=== PATIENT | female | born 1960 | race African-American/Black ===

== ENCOUNTER 2017-09-12 15:53 | Emergency (ER) | payer MEDICAID ==
[~2017-09-12] VITALS: Ht 152.4 cm; Wt 56.2 kg
[2017-09-12 15:53] VITALS: BP 115/59
[2017-09-12] MEDS ORDERED: IBUPROFEN 400 MG TABLET PO ONE (16:30)
[2017-09-12] MEDS ORDERED: IBUPROFEN 400 MG TABLET ONE (17:18)
== END 2017-09-12 17:33 | disposition home or self-care (01) ==
LOC: ER 15:58
DX: M65.4 Radial styloid tenosynovitis [de Quervain] (principal); Z60.2 Problems related to living alone
CPT/HCPCS: A4606; Z7610

== ENCOUNTER 2023-05-24 09:09 | Emergency (ER) | payer MEDICAID, OTHER ==
[~2023-05-24] VITALS: Ht 152.4 cm; Wt 55.3 kg
[2023-05-24 09:21] VITALS: BP 124/77; TEMP 98.7; O2SAT 100
[2023-05-24] MEDS ORDERED: KETOROLAC TROMETHAMINE INJ 30 MG/ML VIAL IM ONE (09:30)
[2023-05-24] MEDS ORDERED: KETOROLAC TROMETHAMINE INJ 30 MG/ML VIAL ONE (09:33)
== END 2023-05-24 11:15 | disposition home or self-care (01) ==
LOC: ER 09:25
DX: M25.561 Pain in right knee (principal); Z60.2 Problems related to living alone
CPT/HCPCS: 99285; 93971; 96372; 73564; J1885